=== PATIENT | male | born 1980 | race Caucasian/White ===

== ENCOUNTER 2022-02-25 03:47 | Emergency (ER) | payer MEDICAID ==
[~2022-02-25] VITALS: Ht 175.3 cm; Wt 83.0 kg
[~2022-02-25 03:47] MED LIST: AMIO200T PO; ASPI-1420 PO
[2022-02-25 03:49] VITALS: BP 124/64
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
--- NOTE | 2022-02-25 04:03 | NUR ---
PT SEEN BY DR. GUAMAN
--- NOTE | 2022-02-25 04:08 | NUR ---
Patient discharged to home in stable condition. Written and verbal after care instructions given. Patient verbalizes understanding of instruction. PT ambulatory with a steady gait
== END 2022-02-25 04:12 | disposition home or self-care (01) ==
LOC: ER 03:48
DX: R23.8 Other skin changes (principal); I48.91 Unspecified atrial fibrillation; F17.200 Nicotine dependence, unspecified, uncomplicated; Z79.899 Other long term (current) drug therapy